=== PATIENT | female | born 1995 | race African-American/Black ===

== ENCOUNTER 2016-12-13 18:09 | Emergency (ER) | payer SELFPAY | END 2016-12-13 19:01 | disposition home or self-care (01) | LOC: ERS 18:09 | DX: L03.116 Cellulitis of left lower limb (principal) | CPT/HCPCS: 99283 ==

== ENCOUNTER 2017-06-29 19:47 | Emergency (ER) | payer MEDICAID, SELFPAY ==
[~2017-06-29 19:47] MED LIST: ISOVUE-370 76%-LOCM 1 ML ONE
[2017-06-29 20:39] LABS: Bilirubin Negative (Negative); Blood, Urine Negative (Negative); Clarity CLOUDY (Clear); Glucose, Urine (Dipstick) Negative (Negative); Leukocyte Small (Negative); Nitrite Positive (Negative); Protein, Urine (Dipstick) Negative (Neg-Trace); Specific Gravity, Urine 1.017 (1.002-1.036)
[2017-06-29 20:40] LABS: Bacteria/HPF 4+ HPF (None Seen); Hyaline Casts/LPF 0-3 HYALINE CAST LPF (0-3 Hyaline); Pathc Cast-AUWi Flag 0.29 (0-2.49); Pregnancy Test - Urine (BHCG) Negative (Negative); Pregu Control Background? CLEAR/WHITE (CLR/WHITE); Pregu Control Bar Appear? YES (CONTROL BAR); Specific Gravity 1.017 (1.002-1.036)
[2017-06-29 20:51] LABS: #Basophils 0.1 thou/uL (0.0-0.2); #Eosinphils 0.1 thou/uL (0.0-0.7); #Monocytes 0.3 thou/uL (0.11-0.59); #Neutrophils 3.2 thou/uL (1.40-6.50); %Basophils 1.3 % (0.0-1.0); %Eosinophils 1.2 % (0.0-10.0); %Lymphocytes 34.8 % (28.0-48.0); %Monocytes 6.1 % (0.0-4.0); %Neutrophils 56.6 % (31.0-61.0); Hemoglobin 12.9 g/dL (12.0-16.0); Mean Corpuscular HGB CONC 32.6 g/dL (32.0-36.0); Mean Corpuscular Hemoglobin 26.4 pg (25.0-35.0); Mean Corpuscular Volume 81.1 fl (77.0-87.0); Mean Platelet Volume 7.2 fL (7.4-10.4); Platelet Count 203 thou/uL (130-400); RBC Distribution Width 11.8 % (11.5-14.5); Red Blood Cell (RBC) Count 4.87 mill/uL (4.00-5.20); White Blood Cell (WBC) Count 5.6 thou/uL (4.8-10.8)
[2017-06-29] MEDS ORDERED: diphenhydrAMINE 12.5 MG/5 ML UDCUP ONE (21:07)
[2017-06-29] MEDS ORDERED: Metoclopramide HCl 10 MG/2 ML VIAL ONE (21:09)
[2017-06-29] MEDS ORDERED: diphenhydrAMINE 50 MG/ML VIAL ONE (21:09)
[2017-06-29] MEDS ORDERED: Ondansetron HCl/PF 4 MG/2 ML Vial ONE (21:09)
[2017-06-29 21:14] LABS: ALT (SGPT) 15 U/L (8-55); AST (SGOT) 19 U/L (5-34); Albumin 3.9 g/dL (3.5-5.0); Alkaline Phosphatase 70 U/L (40-150); Anion Gap 11 mmol/L (10-20); BUN (Urea Nitrogen) 7 mg/dL (7.0-18.7); Bilirubin, Total 0.4 mg/dL (0.2-1.2); Calc. Creatinine Clearance 0 mL/min (70-130); Calcium 8.9 mg/dL (7.8-10.44); Carbon Dioxide 21 mmol/L (22-29); Chloride 110 mmol/L (98-107); Estimated GFR-MDRD Greater than 90; Globulin 2.8 g/dL (2.4-3.5); Glucose 112 mg/dL (70-105); Lipase 20 U/L (8-78); Potassium 4.4 mmol/L (3.5-5.1); Protein, Total 6.7 g/dL (6.0-8.3); Sodium 138 mmol/L (136-145)
--- NOTE | 2017-06-29 23:14 | CT ---
ABDOMEN AND PELVIC CT WITH CONTRAST: 06/29/17 COMPARISON: Noncontrast CT abdomen and pelvis 10/01/14. INDICATION: Abdominal pain. FINDINGS: No consolidation of the lung bases. There is heterogeneous enhancement pattern of the liver. There ar e scattered ill-defined focal hypodensities, not further characterized which involve the left and rig ht hepatic lobes. No peripancreatic inflammation. No focal splenic lesion. Small hypodensity of the l eft kidney too small to further characterize. No adrenal mass or evidence of peripancreatic inflammat ion. The bowel is incompletely evaluated without enteric contrast. Metallic ornamentation at the umbi licus produces streak artifact. There is heterogeneity of the uterus and adnexa which may be physiolo gic. Correlate clinically. Osseous structures are nonacute in appearance. No free air or ascites. IMPRESSION: 1. Ill-defined foci of hypoattenuation of the liver superimposed upon a background of heterogene ous enhancement. Findings are not further characterized. Recommend followup with hemangioma protocol MRI of abdomen for more definitive characterization. 2. Limited evaluation of the bowel without enteric contrast. 3. Heterogeneity of the uterus and adnexa which may be physiologic. Recommend clinical correlati on. 4. Note is made of the prior described punctate urinary tract calculi are not well discerned on the basis of this exam due to the phase of enhancement. There is no hydronephrosis. Code T POS: OFELIA
== END 2017-06-29 23:33 | disposition home or self-care (01) ==
LOC: ERS 19:47
DX: N39.0 Urinary tract infection, site not specified (principal)
CPT/HCPCS: 74177; 80053; 81003; 81015; 81025; 83690; 85025; 87077; 87086; 87186; 96361; 96374; 96375; J1200; J2405; J2765

== ENCOUNTER 2017-11-20 22:14 | Emergency (ER) | payer SELFPAY ==
[2017-11-20 22:44] LABS: #Basophils 0.1 thou/uL (0.0-0.2); #Eosinphils 0.3 thou/uL (0.0-0.7); #Lymphocytes 1.5 thou/uL (1.20-3.40); #Monocytes 0.5 thou/uL (0.11-0.59); #Neutrophils 3.7 thou/uL (1.40-6.50); %Basophils 1.9 % (0.0-1.0); %Eosinophils 5.7 % (0.0-10.0); %Lymphocytes 24.7 % (28.0-48.0); %Monocytes 7.9 % (0.0-4.0); %Neutrophils 59.9 % (31.0-61.0); Hemoglobin 12.7 g/dL (12.0-16.0); Mean Corpuscular HGB CONC 34.1 g/dL (32.0-36.0); Mean Corpuscular Hemoglobin 27.2 pg (25.0-35.0); Mean Corpuscular Volume 79.9 fL (78.0-98.0); Mean Platelet Volume 6.7 fL (7.4-10.4); Platelet Count 237 thou/uL (130-400); RBC Distribution Width 11.8 % (11.5-14.5); Red Blood Cell (RBC) Count 4.65 mill/uL (4.00-5.20); White Blood Cell (WBC) Count 6.1 thou/uL (4.8-10.8)
[2017-11-20 23:07] LABS: ALT (SGPT) 18 U/L (8-55); AST (SGOT) 17 U/L (5-34); Albumin 4.3 g/dL (3.5-5.0); Alkaline Phosphatase 89 U/L (40-150); Anion Gap 12 mmol/L (10-20); BUN (Urea Nitrogen) 9 mg/dL (7.0-18.7); Bilirubin, Total 0.4 mg/dL (0.2-1.2); Calc. Creatinine Clearance 0 mL/min (70-130); Calcium 9.2 mg/dL (7.8-10.44); Carbon Dioxide 23 mmol/L (22-29); Chloride 107 mmol/L (98-107); Estimated GFR-MDRD Greater than 90; Globulin 3.3 g/dL (2.4-3.5); Glucose 91 mg/dL (70-105); Potassium 3.3 mmol/L (3.5-5.1); Protein, Total 7.6 g/dL (6.0-8.3); Sodium 139 mmol/L (136-145)
[2017-11-20 23:33] LABS: BHCG - Serum Negative (NEGATIVE); Pregs Control Background? CLEAR/WHITE (CLR/WHITE); Pregs Control Bar Appear? YES (CONTROL BAR)
[2017-11-20 23:44] LABS: Bilirubin Negative (Negative); Blood, Urine Negative (Negative); Clarity CLOUDY (Clear); Glucose, Urine (Dipstick) Negative (Negative); Leukocyte Small (Negative); Nitrite Negative (Negative); Pregnancy Test - Urine (BHCG) Negative (Negative); Pregu Control Background? CLEAR/WHITE (CLR/WHITE); Pregu Control Bar Appear? YES (CONTROL BAR); Protein, Urine (Dipstick) Negative (Neg-Trace); Specific Gravity 1.023 (1.002-1.036); Specific Gravity, Urine 1.023 (1.002-1.036)
[2017-11-20 23:45] LABS: Bacteria/HPF 4+ HPF (None Seen); Hyaline Casts/LPF 0-3 HYALINE CAST LPF (0-3 Hyaline); Pathc Cast-AUWi Flag 0.43 (0-2.49)
[2017-11-20] MEDS ORDERED: Ibuprofen 800 MG TAB ONE (23:45)
[2017-11-20] MEDS ORDERED: Oxymetazoline HCl 0.05% ( 15 ML ) ONE (23:45)
[2017-11-21 00:03] LABS: RBC/HPF 0-3 HPF (0-3)
== END 2017-11-20 23:58 | disposition home or self-care (01) ==
LOC: ERS 22:14
DX: R51 Headache (principal); R09.81 Nasal congestion; R11.0 Nausea
CPT/HCPCS: 36415; 80053; 81003; 81015; 81025; 84703; 85025; 99284

== ENCOUNTER 2018-08-01 13:01 | Emergency (ER) | payer BC, SELFPAY ==
[~2018-08-01 13:01] MED LIST changes: +Iopamidol 370 76% 50 ML VIAL FS ONE
[2018-08-01 13:47] LABS: #Basophils 0.1 thou/uL (0.0-0.2); #Eosinphils 0.1 thou/uL (0.0-0.7); #Lymphocytes 1.5 thou/uL (1.20-3.40); #Monocytes 0.3 thou/uL (0.11-0.59); #Neutrophils 3.1 thou/uL (1.40-6.50); %Basophils 1.1 % (0.0-1.0); %Eosinophils 1.3 % (0.0-10.0); %Lymphocytes 29.1 % (21.0-51.0); %Monocytes 6.1 % (0.0-10.0); %Neutrophils 62.4 % (42.0-75.0); Hemoglobin 12.5 g/dL (12.0-16.0); Mean Corpuscular HGB CONC 32.1 g/dL (32.0-36.0); Mean Corpuscular Hemoglobin 25.9 pg (27.0-31.0); Mean Corpuscular Volume 80.7 fL (78.0-98.0); Mean Platelet Volume 7.4 fL (7.4-10.4); Platelet Count 272 thou/uL (130-400); RBC Distribution Width 11.8 % (11.5-14.5); Red Blood Cell (RBC) Count 4.82 mill/uL (4.20-5.40)
[2018-08-01 14:03] LABS: Bilirubin Small (Negative); Blood, Urine Large (Negative); Clarity CLEAR (Clear); Glucose, Urine (Dipstick) Negative (Negative); Leukocyte Trace (Negative); Nitrite Negative (Negative); Protein, Urine (Dipstick) Trace mg/dL (Neg-Trace); pH, Urine 5.5 (5.0-9.0)
[2018-08-01 14:05] LABS: Bacteria/HPF None Seen HPF (None Seen); Hyaline Casts/LPF 0-3 HYALINE CAST LPF (0-3 Hyaline); Pathc Cast-AUWi Flag 0.54 (0-2.49); RBC/HPF GREATER THAN 50-TNTC HPF (0-3)
[2018-08-01 14:12] LABS: ALT (SGPT) 16 U/L (8-55); AST (SGOT) 18 U/L (5-34); Albumin 4.5 g/dL (3.5-5.0); Alkaline Phosphatase 93 U/L (40-150); Anion Gap 12 mmol/L (10-20); BUN (Urea Nitrogen) 7 mg/dL (7.0-18.7); Bilirubin, Total 0.7 mg/dL (0.2-1.2); Calc. Creatinine Clearance 0 mL/min (70-130); Carbon Dioxide 24 mmol/L (22-29); Chloride 106 mmol/L (98-107); Estimated GFR-MDRD Greater than 90; Globulin 3.6 g/dL (2.4-3.5); Glucose 80 mg/dL (70-105); Lipase 16 U/L (8-78); Potassium 3.7 mmol/L (3.5-5.1); Protein, Total 8.1 g/dL (6.0-8.3); Sodium 138 mmol/L (136-145)
[2018-08-01 14:31] LABS: Pregnancy Test - Urine (BHCG) Negative (Negative); Pregu Control Background? CLEAR/WHITE (CLR/WHITE); Pregu Control Bar Appear? YES (CONTROL BAR)
[2018-08-01] MEDS ORDERED: Ketorolac Tromethamine 30 MG/ML VIAL ONE (15:56)
[2018-08-01] MEDS ORDERED: Ondansetron PF 4 MG/2 ML Vial ONE (15:56)
[2018-08-01] MEDS ORDERED: Morphine 4 MG/ML VIAL ONE (17:42)
[2018-08-01] MEDS ORDERED: methylPREDNISolone Sod Succ/PF 125 MG/2 ML VIAL ONE (18:02)
[2018-08-01] MEDS ORDERED: diphenhydrAMINE 50 MG/ML VIAL ONE (18:02)
[2018-08-01] MEDS ORDERED: Famotidine/PF 20 mg/2ml Vial ONE (18:02)
--- NOTE | 2018-08-01 18:12 | CT ---
CT of abdomen and pelvis: 08/01/2018 COMPARISON: 06/29/2017 HISTORY: Pain in the right lower quadrant TECHNIQUE: Axial CT imaging at 5 mm intervals from the lung bases through the pubic symphysis with in travenous and oral contrast. Coronal reformatted imaging obtained. FINDINGS: The visualized lung bases are unremarkable. No free intraperitoneal air. Stable nonspecific low-density lesion noted in the medial aspect of the right lobe of the liver on im age 10 measuring 7 mm. The liver, spleen, gallbladder, pancreas, adrenal glands, and kidneys demonstrate no acute findings. No significant free fluid in the pelvis or abdomen. No bowel inflammatory change or evidence of obstr uction. The appendix is visualized and appears normal. Vascular structures of the abdomen and pelvis appear patent. No lymphadenopathy is noted within the a bdomen or pelvis. Osseous structures demonstrate bilateral L5 pars defects. No acute osseous abnormality is noted. IMPRESSION: No acute findings.
== END 2018-08-01 19:09 | disposition home or self-care (01) ==
LOC: ERS 13:01
DX: N94.6 Dysmenorrhea, unspecified (principal); R11.0 Nausea
CPT/HCPCS: 36415; 74177; 80053; 81003; 81015; 81025; 83690; 85025; 96361; 96374; 96375; J1200; J1885; J2270; J2405; J2930; Q9966; Q9967; S0028

== ENCOUNTER 2020-02-13 14:16 | Emergency (ER) | payer MEDICAID, SELFPAY ==
[2020-02-13 21:37] LABS: SARS-CoV-2 MS2 Positive; SARS-CoV-2 N Gene Negative; SARS-CoV-2 S Gene Negative; SARS-CoV-2 by NAA Not Detected (NotDetected); SARS-CoV-2 orf1ab Negative
== END 2020-02-13 15:30 | disposition home or self-care (01) ==
LOC: ERS 14:16
DX: J02.9 Acute pharyngitis, unspecified (principal); R19.7 Diarrhea, unspecified; Z20.828 Contact with and (suspected) exposure to other viral communicable diseases
CPT/HCPCS: 87081; 87430; 87635; 99283; U0003

== ENCOUNTER 2020-02-27 19:29 | Emergency (ER) | payer SELFPAY ==
[2020-02-28 06:50] LABS: SARS-CoV-2 MS2 Positive; SARS-CoV-2 N Gene Positive; SARS-CoV-2 S Gene Positive; SARS-CoV-2 by NAA DETECTED (NotDetected); SARS-CoV-2 orf1ab Positive
== END 2020-02-27 20:43 | disposition home or self-care (01) ==
LOC: ERS 19:29
DX: R50.9 Fever, unspecified (principal); Z20.828 Contact with and (suspected) exposure to other viral communicable diseases
CPT/HCPCS: 87635; 99283; U0003

== ENCOUNTER 2024-04-17 01:35 | Emergency (ER) | payer OTHER, SELFPAY | END 2024-04-17 05:30 | disposition home or self-care (01) | LOC: ERS 01:35 | DX: J11.1 Influenza due to unidentified influenza virus with other respiratory manifestations (principal) | CPT/HCPCS: 87428; 99283 ==